=== PATIENT | female | born 1980 | race Hispanic/Latino ===

== ENCOUNTER 2020-10-05 20:37 | Emergency (ER) | payer BC ==
[~2020-10-05] VITALS: Ht 152.4 cm; Wt 96.2 kg
[2020-10-05] MEDS ORDERED: KETOROLAC TROMETHAMINE 30 MG/ML VIAL IV STA (21:01)
[2020-10-05] MEDS ORDERED: SODIUM CHLORIDE 0.9% 50ML 50 ML ONE (21:15)
[2020-10-05] MEDS ORDERED: IOPAMIDOL 370 MG/ML 200 ML INFUS..BTL INJ ONE (21:16)
[2020-10-05] MEDS ORDERED: KETOROLAC TROMETHAMINE 30 MG/ML VIAL ONE (21:21)
[2020-10-05] MEDS ORDERED: IBUPROFEN600 MG PO (22:46)
[2020-10-05 22:58] VITALS: BP 131/72
== END 2020-10-05 22:58 | disposition home or self-care (01) ==
LOC: FSED 21:00
DX: R10.31 Right lower quadrant pain (principal); M54.5 Low back pain; N83.201 Unspecified ovarian cyst, right side
CPT/HCPCS: 74177; 80053; 81003; 81025; 85025; 96374; 99284; J1885; Q9967

== ENCOUNTER 2021-06-29 20:34 | Emergency (ER) | payer BC ==
[~2021-06-29] VITALS: Ht 152.4 cm; Wt 96.2 kg
[~2021-06-29 20:34] MED LIST: IBUPROFEN600 MG PO
[2021-06-29] MEDS ORDERED: NYSTATIN15 GM TOP (21:09)
[2021-06-29] MEDS ORDERED: MUPIROCIN22 GM TOP (21:09)
== END 2021-06-29 21:45 | disposition home or self-care (01) ==
LOC: FSED 20:38
DX: B37.9 Candidiasis, unspecified (principal); L02.416 Cutaneous abscess of left lower limb
CPT/HCPCS: 99283